=== PATIENT | female | born 1985 | race Two or more races ===

== ENCOUNTER 2018-02-07 21:39 | Emergency (ER) | payer SELFPAY ==
[~2018-02-07] VITALS: Ht 165.1 cm; Wt 63.5 kg
[2018-02-07 21:40] VITALS: BP 114/67
--- NOTE | 2018-02-07 22:14 | PHYS DOC ---
Adult General Chief Complaint Chief Complaint: COUGH HPI HPI Patient is a 32 year old female who presents with fever, cough, vomiting, nausea, epigastric burning, throat and ear pain since Friday. Patient's been taking Tylenol cold and flu. No known drug allergies, no medical history, no surgical history. Review of Systems Review of Systems Constitutional: Fever or chills [] Eyes: Denies change in visual acuity, redness, or eye pain [] HENT: Nasal congestion or sore throat, ear pain [] Respiratory: Cough. Denies shortness of breath [] Cardiovascular: No additional information not addressed in HPI [] GI: Epigastric burning abdominal pain, nausea, vomiting. Denies bloody stools or diarrhea [] : Denies dysuria or hematuria [] Musculoskeletal: Denies back pain or joint pain [] Integument: Denies rash or skin lesions [] Neurologic: Denies headache, focal weakness or sensory changes [] All other systems were reviewed and found to be within normal limits, except as documented in this note. Current Medications Current Medications Current Medications Medications (Trade) Dose Ordered Sig/Trevor Start Time Stop Time Status Last Admin Dose Admin Prednisone (Prednisone) 50 mg 1X ONCE 02/07/18 22:15 02/07/18 22:16 DC 02/07/18 22:16 50 MG Allergies Allergies Allergies Coded Allergies Type Severity Reaction Last Updated Verified No Known Drug Allergies 02/07/18 No Physical Exam Physical Exam Constitutional: Well developed, well nourished, no acute distress, non-toxic appearance. [] HENT: Normocephalic, atraumatic, bilateral external ears normal, oropharynx moist, no oral exudates, nose normal. Throat reddened without swelling or exudates.[] Eyes: PERRLA, EOMI, conjunctiva normal, no discharge. [] Neck: Normal range of motion, no tenderness, supple, no stridor. [] Cardiovascular:Heart rate regular rhythm, no murmur [] Lungs & Thorax: Bilateral breath sounds clear to auscultation [] Abdomen: Bowel sounds normal, soft, no tenderness, no masses, no pulsatile masses. [] Skin: Warm, dry, no erythema, no rash. [] Back: No tenderness, no CVA tenderness. [] Extremities: No tenderness, no cyanosis, no clubbing, ROM intact, no edema. [] Neurologic: Alert and oriented X 3, normal motor function, normal sensory function, no focal deficits noted. [] Psychologic: Affect normal, judgement normal, mood normal. [] Current Patient Data Vital Signs Vital Signs Date Time Temp Pulse Resp B/P (MAP) Pulse Ox O2 Delivery O2 Flow Rate FiO2 02/07/18 21:40 97.8 78 18 114/67 (83) 95 Room Air 97.8 Lab Values Laboratory Tests Test 02/07/18 22:18 Influenza Type A Antigen Negative (NEGATIVE) Influenza Type B Antigen Negative (NEGATIVE) EKG EKG [] Radiology/Procedures Radiology/Procedures Chest xray Course & Med Decision Making Course & Med Decision Making Patient is a 32 year old female who presents with fever, cough, vomiting, nausea, epigastric burning, throat and ear pain since Friday. Patient's been taking Tylenol cold and flu. No known drug allergies, no medical history, no surgical history. Alert and oriented. Skin is pink warm and dry. Bilateral tympanic membranes are pearly white. Throat is reddened but not swollen and there is no exudates. Patient has some sinus congestion but no sinus tenderness. Patient's temperature in the ED is 97.8. Patient does have a nonproductive cough. Lungs are clear to auscultation all lobes. Heart rate regular and no murmur. Abdomen is soft and nontender. Ordered a dose of prednisone patient ED. flu negative. Chest x-ray was read by Dr. Garay and there are no acute findings. Patient will be diagnosed with a respiratory infection giving Tessalon Perles, prednisone, azithromycin, Zofran. Patient should follow up with her primary care in next 3-5 days if she is not getting any better. [] Dragon Disclaimer Dragon Disclaimer This electronic medical record was generated, in whole or in part, using a voice recognition dictation system. Departure Departure Impression: Primary Impression: Respiratory infection Disposition: 01 HOME, SELF-CARE Condition: STABLE Patient Instructions: Upper Respiratory Infection, Adult Additional Instructions: Follow up with your primary care. Take medications as prescribed. Scripts Prednisone (PREDNISONE) 50 Mg Tablet 1 TAB PO DAILY, #4 TAB Prov: CHANTELLE ULLOA MAINTENANCE PLANNING CLERK 02/07/18 Azithromycin (AZITHROMYCIN TABLET) 250 Mg Tablet 1 PKG PO UD, #6 TAB Prov: CHANTELLE ULLOA MAINTENANCE PLANNING CLERK 02/07/18 Ondansetron (ONDANSETRON ODT) 4 Mg Tab.rapdis 4 MG PO TID PRN for NAUSEA/VOMITING, #30 TAB Prov: CHANTELLE ULLOA 02/07/18 Benzonatate (TESSALON PERLE) 100 Mg Capsule 1 CAP PO TID, #30 CAP Prov: CHANTELLE ULLOA APR02/07/18 Attending Signature Attending Signature I have reviewed the PA/[employer]'s note and plan of care. I was available for consultation as needed during the patient's visit in the emergency department. I agree with the clinical impression, plan, and disposition. CHANTELLE ULLOA APRN Feb 07, 2018 22:14 TIFFANIE GARAY DO Feb 09, 2018 11:02
[2018-02-07] MEDS ORDERED: predniSONE 10 MG TABLET PO ONE (22:15)
[2018-02-07] MEDS ORDERED: AZIT250T6 PO (22:19)
[2018-02-07] MEDS ORDERED: PRED50TA PO (22:19)
[2018-02-07] MEDS ORDERED: BENZ100C PO (22:19)
[2018-02-07] MEDS ORDERED: ONDA4TAB12 PO (22:19)
[2018-02-07 22:46] LABS: INFLUENZA A PATIENT NEGATIVE (NEGATIVE); INFLUENZA B PATIENT NEGATIVE (NEGATIVE)
--- NOTE | 2018-02-07 23:01 | RAD ---
Chest, PA and Lateral: Technique: PA and lateral views of the chest were obtained. History: Productive cough, dizziness. Comparison: None. Findings: The heart and pulmonary vasculature appear within normal limits. The lungs are clear. The pleural margins are clear. Impression: No acute chest process is seen. Electronically signed by: Sampson Maddox MD (02/07/2018 10:58 PM) [facility]
== END 2018-02-07 23:15 | disposition home or self-care (01) ==
LOC: ER 21:39
DX: J06.9 Acute upper respiratory infection, unspecified (principal); R11.2 Nausea with vomiting, unspecified; R10.13 Epigastric pain; H92.09 Otalgia, unspecified ear
CPT/HCPCS: 71046; 87804; 99285; J7512